=== PATIENT | female | born 1995 | race Caucasian/White ===

== ENCOUNTER 2021-12-20 10:42 | Emergency (ER) | payer MEDICAID ==
[~2021-12-20] VITALS: Ht 157.5 cm; Wt 55.0 kg
[2021-12-20] MEDS ORDERED: KETOROLAC 30MG/ML VIAL IV STA (11:05)
[2021-12-20] MEDS ORDERED: SODIUM CHLORIDE 0.9% 1,000 ML IV ONE (11:15)
[2021-12-20 11:32] LABS: HEMATOCRIT. 38.8 % (36.0-48.0); HEMOGLOBIN. 13.2 g/dL (12.0-16.0); MEAN CORPUSCULAR HEMOGLOBIN 31.3 pg (28.0-32.0); MEAN CORPUSCULAR VOLUME 92.1 fL (81.0-99.0); MEAN PLATELET VOLUME 8.7 fl (7.4-10.4); PLATELET 174 x1000/uL (130-400); RED BLOOD CELL COUNT 4.22 mill/uL (4.2-5.4); RED CELL DISTRIBUTION WIDTH 13.2 % (11.6-14.6)
[2021-12-20 11:42] LABS: HCG SCREEN NEGATIVE
[2021-12-20 11:43] LABS: CHLORIDE 102 mEq/L (98-107)
[2021-12-20 12:17] LABS: PLATELET ESTIMATE NORMAL
[2021-12-20] MEDS ORDERED: KETOROLAC 15MG/ML VIAL IV NR (15:07)
[2021-12-20 15:31] LABS: CLARITY URINE CLEAR (CLEAR); COLOR URINE YELLOW (YELLOW); KETONES URINE 4+ (NEGATIVE); LEUKOCYTE ESTERASE URINE 1+ (NEGATIVE); NITRITE URINE NEGATIVE (NEGATIVE); OCCULT BLOOD URINE 3+ (NEGATIVE); PH URINE 5.5 (4.5-8.0); PROTEIN URINE 1+ (NEGATIVE)
[2021-12-20] MEDS ORDERED: CEFTRIAXONE 1 G PREMIX 50 ML IV ONE (15:45)
[2021-12-20] MEDS ORDERED: ACET-2081 MT (16:21)
[2021-12-20] MEDS ORDERED: ONDA4TAB5 MT (16:21)
[2021-12-20 17:01] VITALS: BP 97/64
== END 2021-12-20 17:35 | disposition home or self-care (01) ==
LOC: ER 10:42
DX: N23 Unspecified renal colic (principal); E86.0 Dehydration; F12.10 Cannabis abuse, uncomplicated
CPT/HCPCS: 36415; 76770; 80053; 81003; 83690; 84703; 85025; 87086; 96361; 96374; 99284; J1885; J7030

== ENCOUNTER 2022-02-16 22:02 | Emergency (ER) | payer MEDICAID ==
[~2022-02-16] VITALS: Ht 157.5 cm; Wt 34.9 kg
[~2022-02-16 22:02] MED LIST: ACET-2084 MT; ONDA4TAB5 MT
[2022-02-16 22:30] VITALS: BP 117/70
[2022-02-17 00:42] LABS: HEMATOCRIT. 37.4 % (36.0-48.0); HEMOGLOBIN. 12.1 g/dL (12.0-16.0); MEAN CORPUSCULAR HEMOGLOBIN 29.8 pg (28.0-32.0); MEAN CORPUSCULAR VOLUME 92.3 fL (81.0-99.0); MEAN PLATELET VOLUME 8.2 fl (7.4-10.4); PLATELET 224 x1000/uL (130-400); RED BLOOD CELL COUNT 4.05 mill/uL (4.2-5.4); RED CELL DISTRIBUTION WIDTH 13.4 % (11.6-14.6)
[2022-02-17 00:50] LABS: CHLORIDE 107 mEq/L (98-107)
[2022-02-17 00:58] LABS: HCG SCREEN NEGATIVE
[2022-02-17 02:44] LABS: PLATELET ESTIMATE NORMAL
== END 2022-02-17 02:00 | disposition left against medical advice (07) ==
LOC: ER 22:02
DX: R10.31 Right lower quadrant pain (principal); Z53.21 Procedure and treatment not carried out due to patient leaving prior to being seen by health care provider
CPT/HCPCS: 36415; 80053; 81025; 83605; 84703; 85025; 99283

== ENCOUNTER 2023-07-23 18:46 | Emergency (ER) | payer MEDICAID ==
[~2023-07-23] VITALS: Ht 152.4 cm; Wt 46.0 kg
[2023-07-23 18:52] VITALS: BP 114/79; PULSE 90; RESP 16; TEMP 97.9; O2SAT 100
== END 2023-07-23 20:41 | disposition home or self-care (01) ==
LOC: ER 18:46
DX: F99 Mental disorder, not otherwise specified (principal); F20.9 Schizophrenia, unspecified; F12.90 Cannabis use, unspecified, uncomplicated; F32.A Depression, unspecified; Z98.890 Other specified postprocedural states; Z87.442 Personal history of urinary calculi
CPT/HCPCS: 99283

== ENCOUNTER 2023-12-25 14:02 | Emergency (ER) | payer MEDICAID ==
[~2023-12-25] VITALS: Ht 157.5 cm; Wt 55.0 kg
[2023-12-25 14:07] VITALS: O2SAT 100
[2023-12-25] MEDS ORDERED: IBUPROFEN 800MG TABLET PO ONE (14:45)
[2023-12-25] MEDS: IBUPROFEN 600MG TABLET PO NR (15:30)
[2023-12-25] MEDS ORDERED: ACET325T52 MT (16:19)
[2023-12-25 16:32] VITALS: BP 128/84; PULSE 84; RESP 20; TEMP 97.9
== END 2023-12-25 16:35 | disposition home or self-care (01) ==
LOC: ER 14:59
DX: M25.571 Pain in right ankle and joints of right foot (principal); M79.671 Pain in right foot; F12.10 Cannabis abuse, uncomplicated
CPT/HCPCS: 73610; 73630; 81025; 99284